=== PATIENT | female | born 1970 | race Caucasian/White ===

== ENCOUNTER 2016-11-14 18:40 | Emergency (ER) | payer BC ==
[2016-11-14 18:47] VITALS: BP 139/89; PULSE 82; TEMP 98.1; BMI 36.0
--- NOTE | 2016-11-14 19:20 | PDOC ---
History of Present Illness - General History Source: Patient Exam Limitations: No Limitations - History of Present Illness Initial Comments: 11/14/16 19:48 The patient is a 46 year old female, with a significant past medical history of hypercholesterolemia, who presents to the emergency department complaining of left knee pain for approximately 3 weeks. She describes her pain as sharp in nature. She reports associated internal burning at the site of the pain. The patient reports the pain and burning is worse when driving. She reports she has occasional difficulty ambulating secondary to pain and intermittent stiffness with walking.. The patient reports she had a pain similar to this approximately 1 year ago, during which she had an X-Ray, which revealed a sprain. Patient reports following up with physical therapy, with mild relief of symptoms for several months. Recently she has noted increased swelling to the left knee. The patient reports she has been taking motrin for the pain. She reports she occasionally feels mild relief when taking 2 motrin. She denies any history of trauma to the left knee, varicose veins, DVTs or PEs. She denies any recent travel. Allergies: None reported Past Surgical History: None reported Social History: Current everyday smoker. No ETOH or drug use. PCP: Dr. Chu <Wong Castillo - Last Filed: 11/14/16 19:55> <Ketty Lennon - Last Filed: 11/15/16 00:11> - General Chief Complaint: Pain Stated Complaint: LEFT KNEE PAIN Time Seen by Provider: 11/14/16 19:19 Past History <Wong Castillo - Last Filed: 11/14/16 19:55> - Past Medical History Diabetes: Yes Hypercholesterolemia: Yes - Immunization History Immunization Up to Date: Yes - Psycho/Social/Smoking Cessation Hx Anxiety: Yes Suicidal Ideation: No Smoking Status: No Smoking History: Current some day smoker Have you smoked in the past 12 months: Yes Number of Cigarettes Smoked Daily: 1 Information on smoking cessation initiated: Yes 'Breaking Loose' booklet given: 11/14/16 Hx Alcohol Use: No Drug/Substance Use Hx: No Substance Use Type: None <Ketty Lennon - Last Filed: 11/15/16 00:11> - Past Medical History Allergies/Adverse Reactions: Allergies Allergy/AdvReac Type Severity Reaction Status Date / Time No Known Allergies Allergy Verified 11/14/16 18:41 Home Medications: Ambulatory Orders Fenofibrate 145 mg PO DAILY 09/27/15 Diclofenac Sodium 75 mg PO BID PRN #20 tablet. 11/14/16 Review of Systems - Review of Systems Able to Perform ROS?: Yes Comments:: 11/14/16 19:48 CONSTITUTIONAL: Absent: fever, no chills, no fatigue EYES: Absent: visual changes ENT: Absent: ear pain, no sore throat CARDIOVASCULAR: Absent: chest pain, no palpitations RESPIRATORY: Absent: cough, no SOB GI: Absent: abdominal pain, no nausea, no vomiting, no constipation, no diarrhea GENITOURINARY: Absent: dysuria, no frequency, no hematuria MUSCULOSKELETAL: Present: +left knee pain, +internal burning at left knee, +left knee swelling, + stiffness with walking Absent: back pain, no arthralgia, no myalgia SKIN: Absent: rash NEURO: Absent: headache <Wong Castillo - Last Filed: 11/14/16 19:55> *Physical Exam - Vital Signs Last Vital Signs Temp Pulse Resp BP Pulse Ox 98.1 F 82 20 139/89 99 11/14/16 18:40 11/14/16 18:40 11/14/16 18:40 11/14/16 18:40 11/14/16 18:40 - Physical Exam Comments: 11/14/16 19:48 GENERAL: The patient is awake, alert, and fully oriented, in no acute distress. HEAD: Normal with no signs of trauma. EYES: Pupils equal, round and reactive to light, extraocular movements intact, sclera anicteric, conjunctiva clear. EXTREMITIES: Left knee was nonedematous without deformity or ecchymosis. Mild tenderness to palpation superior to the left patella. Mild pain medially with valgus stressing, but no ligamentous instability. Left lower leg 4x4 cm mildly edematous, faintly ecchymotic, and mildly tender from the medial proximal portion of the left lower leg, extending posteriorly. No palpable cords. No distinct varicosity seen. Otherwise normal with palpable pedal pulses. Good capillary refill, no edema. Warm and dry.Normal range of motion. NEUROLOGICAL: Normal speech, normal gait. PSYCH: Normal mood, normal affect. SKIN: Warm, Dry, normal turgor, no rashes or lesions noted. <Castillo,Giomilsy - Last Filed: 11/14/16 19:55> - Vital Signs Last Vital Signs Temp Pulse Resp BP Pulse Ox 98.1 F 82 20 139/89 99 11/14/16 18:40 11/14/16 18:40 11/14/16 18:40 11/14/16 18:40 11/14/16 18:40 <Ketty Lennon - Last Filed: 11/15/16 00:11> Progress Note - Progress Note Progress Note: Documentation has been prepared under my direction and personally reviewed by me in its entirety. I attest that this documented accurately reflects all work, treatment, procedures and medical decision making performed by me. <Ketty Lennon - Last Filed: 11/15/16 00:11> Medical Decision Making - Medical Decision Making As noted above, this 46-year-old woman presents with a few week history of left knee discomfort and a more recent history of edema/pain/bruising just distal and medial to her left knee. No history of trauma noted. Patient had similar knee episodes approximately one year ago which was diagnosed as a sprain. Symptoms improved after physical therapy but have now recurred despite no trauma /overuse. She has no history of varicose veins/DVT or other thromboembolic issues. Exam as noted Doppler duplex study of the left lower extremity was performed because of the tenderness and edema of the proximal lower leg; no DVTs seen on study. Left knee x-ray show no evidence of fracture/dislocation or significant DJD Results discussed with the patient. Localized edema and tenderness likely secondary to contusion. The left knee symptoms are likely soft tissue base; she has been given Drs. Nettles/Edward referral information for follow-up. Meanwhile, the patient will have Toradol 60 mg IM for anti-inflammatory/ analgesia effects Diclofenac 75 mg twice a day (#20) prescription, to be used as needed for knee pain and to be taken with food, sent to pharmacy <Ketty Lennon - Last Filed: 11/15/16 00:11> *DC/Admit/Observation/Transfer - Attestations Scribe Attestion: 11/14/16 19:48 Documentation prepared by Wong Castillo, acting as emergency medical service coordinator for Ketty Lennon MD. <Wong Castillo - Last Filed: 11/14/16 19:55> <Ketty Lennon - Last Filed: 11/15/16 00:11> Diagnosis at time of Disposition: Knee pain, left Qualifiers: Chronicity: chronic Qualified Code(s): M25.562 - Pain in left knee Contusion of left lower leg Qualifiers: Encounter type: initial encounter Qualified Code(s): S80.12XA - Contusion of left lower leg, initial encounter - Discharge Dispostion Disposition: HOME Condition at time of disposition: Good - Prescriptions Prescriptions: Diclofenac Sodium 75 mg PO BID PRN #20 tablet.dr ESPINOZA Reason: Pain - Referrals Referrals: Goran Nettles MD [Staff Physician] - Call tomorrow - Patient Instructions Printed Discharge Instructions: DI for Knee Pain Additional Instructions: cool compresses to swollen area elevate left leg as much as possible diclofenac 75mg twice a day as needed for pain(take with food) followup with Dr Nettles/Dr Leon(orthopedists) within 1 week
[2016-11-14] MEDS ORDERED: KETOROLAC TROMETHAMINE 60 MG/2 ML VIAL IM ONE (21:41)
[2016-11-14] MEDS ORDERED: KETOROLAC TROMETHAMINE 60 MG/2 ML VIAL ONE (21:41)
== END 2016-11-14 21:47 | disposition home or self-care (01) ==
LOC: FER 18:40
PROC: 3E0233Z Introduction of Anti-inflammatory into Muscle, Percutaneous Approach (ICD-10-PCS; principal; 2016-11-14)
DX: M25.562 Pain in left knee (principal); S80.12XA Contusion of left lower leg, initial encounter
CPT/HCPCS: 73562-TC-LT; 93971-TC; 99282-25

== ENCOUNTER 2017-06-29 14:22 | Emergency (ER) | payer BC ==
--- NOTE | 2017-06-29 14:25 | PDOC ---
History of Present Illness - General History Source: Patient Exam Limitations: No Limitations - History of Present Illness Initial Comments: 06/29/17 14:41 The patient is a 46 year old female, with a significant past medical history of hyperlipidemia, who presents to the emergency department with cold-like symptoms for approximately 5 days. The patient reports she first developed a dry cough 5 days ago. Patient reports associated right sided chest tightness and rib pain secondary to coughing. She states she has been using a Symbicort and Albuterol inhaler for her symptoms with mild relief. Since then, she reports a runny nose, sinus congestion, mouth blisters, subjective fever, sore throat, and laryngitis. Patient states her symptoms are similar to when she has had bronchitis in the past. She denies any body aches, chills, headache, dizziness, or ear pain. She denies any shortness of breath, diaphoresis, or palpitations. She denies any abdominal pain, nausea, or vomiting. She denies any recent travel or sick contacts. Allergies: NKDA Past Surgical History: None reported. Social History: Occasional smoker(last cigarette about 1 week ago). No ETOH or recreational drug use. <Wong Castillo - Last Filed: 06/29/17 14:41> <Khadar Keyes - Last Filed: 06/29/17 15:19> - General Chief Complaint: Cold Symptoms Stated Complaint: FLU Time Seen by Provider: 06/29/17 14:25 Past History <Wong Castillo - Last Filed: 06/29/17 14:41> - Past Medical History Diabetes: Yes Hypercholesterolemia: Yes - Immunization History Immunization Up to Date: Yes - Suicide/Smoking/Psychosocial Hx Smoking Status: No Smoking History: Current some day smoker Have you smoked in the past 12 months: Yes Number of Cigarettes Smoked Daily: 1 'Breaking Loose' booklet given: 11/14/16 Hx Alcohol Use: No Drug/Substance Use Hx: No Substance Use Type: None <Khadar Keyes - Last Filed: 06/29/17 15:19> - Past Medical History Allergies/Adverse Reactions: Allergies Allergy/AdvReac Type Severity Reaction Status Date / Time No Known Allergies Allergy Verified 06/29/17 14:23 Home Medications: Ambulatory Orders Acyclovir 5% Ointment [Zovirax 5% Ointment -] 1 applic TP 5XD #1 tube 06/29/17 Guaifenesin AC [Robitussin-AC] 1 - 2 tsp PO Q4HWA PRN #120 ml MDD 8 06/29/17 Oseltamivir Phosphate [Tamiflu] 75 mg PO BID #10 capsule 06/29/17 Review of Systems - Review of Systems Able to Perform ROS?: Yes Comments:: 06/29/17 14:42 CONSTITUTIONAL: Present: fever Absent: no chills, no fatigue EYES: Absent: visual changes ENT: Present: Sore throat, laryngitis, runny nose, sinus congestion, mouth blisters Absent: ear pain CARDIOVASCULAR: Present: Right sided chest tightness Absent: chest pain, no palpitations RESPIRATORY: Present: cough Absent: no SOB GI: Absent: abdominal pain, no nausea, no vomiting, no constipation, no diarrhea GENITOURINARY: Absent: dysuria, no frequency, no hematuria MUSKULOSKELETAL: Present: right sided rib pain Absent: back pain, no myalgia SKIN: Absent: rash NEURO: Absent: headache <Castillo,Giomilsy - Last Filed: 06/29/17 14:41> *Physical Exam - Vital Signs Last Vital Signs Temp Pulse Resp BP Pulse Ox 98.2 F 96 H 16 129/90 96 06/29/17 14:22 06/29/17 14:22 06/29/17 14:22 06/29/17 14:22 06/29/17 14:22 - Physical Exam Comments: 06/29/17 14:45 GENERAL: Well-appearing, well-nourished. No apparent distress. Moderately obese. Sustained nonproductive cough. HEENT: Mild pharyngeal erythema without exudates, masses, or swelling. Scattered vesicles over the lips bilaterally and the mucous membranes of the oropharynx. Normocephalic, atraumatic. PERRL, EOM intact. NECK: Supple. No lyphadenopathy CARDIOVASCULAR: Normal S1, S2. Regular rate and rhythm. No murmurs, rubs, or gallops PULMONARY: Decreased breath sounds bilaterally. No wheezes, rales or ronchi. No tachypnea or dyspnea. ABDOMEN: Soft, non-distended, non-tender. EXTREMITIES: Normal ROM in all four extremities. No gross deformities. SKIN: Warm, dry. No rash. Good turgor. Moist mucous membranes. NEUROLOGICAL: No focal neurological deficits. <Wong Castillo - Last Filed: 06/29/17 14:41> Medical Decision Making - Medical Decision Making 06/29/17 15:18 Patient with minimal risk factors and a flu symptoms. Prescribed albuterol and steroid inhalers by her primary physician. Nonproductive cough. No fever or shortness of breath Improved with nebulizer treatment. Breath sounds full, bilateral, without wheezes rales or rhonchi. Respiratory rate 16 and unlabored. O2 saturation 98%. Most likely influenza, symptomatic and Tamiflu treatment, rest and fluids, close follow-up if no improvement or if symptoms worsen. Fully ambulatory and in no distress respiratory or otherwise upon discharge with her to follow-up as recommended <Khadar Keyes - Last Filed: 06/29/17 15:19> *DC/Admit/Observation/Transfer - Attestations Scribe Attestion: 06/29/17 14:42 Documentation prepared by Wong Castillo, acting as medical administrative technician for Khadar Bedolla MD. <Wong Castillo - Last Filed: 06/29/17 14:41> - Discharge Dispostion Admit: No <Khadar Keyes - Last Filed: 06/29/17 15:19> Diagnosis at time of Disposition: Viral upper respiratory tract infection with cough - Discharge Dispostion Disposition: HOME Condition at time of disposition: Improved - Prescriptions Prescriptions: Acyclovir 5% Ointment [Zovirax 5% Ointment -] 1 applic TP 5XD #1 tube Guaifenesin AC [Robitussin-AC] 1 - 2 tsp PO Q4HWA PRN #120 ml MDD 8 PRN Reason: Cough Oseltamivir Phosphate [Tamiflu] 75 mg PO BID #10 capsule - Referrals Referrals: Severiano Chu MD [Primary Care Provider] - 2 Days - Patient Instructions Printed Discharge Instructions: DI for Viral Upper Respiratory Infection -- Adult - Post Discharge Activity Forms/Work/School Notes: Back to Work
[2017-06-29 14:34] VITALS: BP 129/90; PULSE 96; TEMP 98.2; BMI 36.8
[2017-06-29] MEDS ORDERED: ALBUTEROL SO4 2.5/IPRATROPIUM 0.5 INH SOL 3 ML VIAL.NEB. NEB ONE ×2 (14:35→14:37)
[2017-06-29] MEDS ORDERED: guaiFENesin/CODEINE 10 ML UNIT-DOSE CUPS PO ONE (14:36)
[2017-06-29] MEDS ORDERED: guaiFENesin/CODEINE 10 ML UNIT-DOSE CUPS ONE (14:37)
== END 2017-06-29 15:12 | disposition home or self-care (01) ==
LOC: FER 14:22
PROC: 3E0F7GC Introduction of Other Therapeutic Substance into Respiratory Tract, Via Natural or Artificial Opening (ICD-10-PCS; principal; 2017-06-29)
DX: J06.9 Acute upper respiratory infection, unspecified (principal); B97.89 Other viral agents as the cause of diseases classified elsewhere; R05 Cough; F17.210 Nicotine dependence, cigarettes, uncomplicated
CPT/HCPCS: 99281-25

== ENCOUNTER 2018-09-23 02:54 | Emergency (ER) | payer BC ==
--- NOTE | 2018-09-23 03:01 | PDOC ---
History of Present Illness - General Chief Complaint: Pain, Acute Stated Complaint: RIGHT EAR CLOGGED Time Seen by Provider: 09/23/18 03:01 - History of Present Illness Initial Comments: The patient is a 48 year old female, with a significant PMH of HLD who presents to the emergency department with 1 day hx of progressive right ear pain. The patient states that she has had a few day hx of nasal congestion, likely secondary to seasonal allergies. During the day she noted increasing sensation of fullnes in the right ear, with pain developing in the evening. No hx of trauma to the ear. She states that she has had "swimmers ear" in the past, that was treated with drops. No fever The patient denies chest pain, shortness of breath, headache and dizziness. Allergies: NKA Past History - Past Medical History Allergies/Adverse Reactions: Allergies Allergy/AdvReac Type Severity Reaction Status Date / Time No Known Allergies Allergy Verified 09/23/18 02:56 Home Medications: Ambulatory Orders Albuterol Sulfate Inhaler - [Ventolin Hfa Inhaler -] 1 - 2 inh PO QID 09/23/18 Montelukast Sodium [Singulair] 10 mg PO DAILY 09/23/18 Neomycin/Polymyxn/Hc [Cortisporin Otic Suspenstion -] 4 drop AD Q4HWA #1 bottle 09/23/18 COPD: No Diabetes: Yes Hypercholesterolemia: Yes - Immunization History Immunization Up to Date: Yes - Suicide/Smoking/Psychosocial Hx Smoking Status: No Smoking History: Current some day smoker Have you smoked in the past 12 months: Yes Number of Cigarettes Smoked Daily: 1 'Breaking Loose' booklet given: 11/14/16 Hx Alcohol Use: No Drug/Substance Use Hx: No Substance Use Type: None Review of Systems - Review of Systems Able to Perform ROS?: Yes Comments:: GENERAL/CONSTITUTIONAL: No fever or chills. No weakness. HEAD, EYES, EARS, NOSE AND THROAT: No change in vision. No sore throat. CARDIOVASCULAR: No chest pain or shortness of breath. RESPIRATORY: No cough, wheezing, or hemoptysis. GASTROINTESTINAL: No nausea, vomiting, diarrhea or constipation. GENITOURINARY: No dysuria, frequency, or change in urination. MUSCULOSKELETAL: No joint or muscle swelling or pain. No neck or back pain. SKIN: No rash NEUROLOGIC: No headache, vertigo, loss of consciousness, or change in strength/ sensation. ENDOCRINE: No increased thirst. No abnormal weight change. HEMATOLOGIC/LYMPHATIC: No anemia, easy bleeding, or history of blood clots. ALLERGIC/IMMUNOLOGIC: No hives or skin allergy. *Physical Exam - Physical Exam Comments: GENERAL: Awake, alert, and fully oriented, in no acute distress HEAD: No signs of trauma EYES: PERRLA, EOMI, sclera anicteric, conjunctiva clear ENT: Auricles normal inspection,Right canal edematous,erythematous/ TM only partially visualized; Left ear normal hearing grossly normal, nares patent, oropharynx clear without exudates. Moist mucosa NECK: Normal ROM, supple, no lymphadenopathy, JVD, or masses Medical Decision Making - Medical Decision Making Clinical presentation consistent with acute otitis externa of right ear. Prescription for cortisporin otic suspension sent to pharmacy: pt should use drops every 4 hours in R ear while awake for 1 week She already has an ENT doctor: she should call office tomorrow to arrange followup within a few days *DC/Admit/Observation/Transfer Diagnosis at time of Disposition: Acute otitis externa of right ear Qualifiers: Otitis externa type: unspecified type Qualified Code(s): H60.501 - Unspecified acute noninfective otitis externa, right ear - Discharge Dispostion Disposition: HOME Condition at time of disposition: Stable - Prescriptions Prescriptions: Neomycin/Polymyxn/Hc [Cortisporin Otic Suspenstion -] 4 drop AD Q4HWA #1 bottle - Referrals - Patient Instructions Printed Discharge Instructions: Otitis Externa Additional Instructions: cortisporin otic suspension 4 drops in right ear every 4 hours while awake for 1 week keep ear as dry as possible Motrin/Aleve/Tylenol as needed for pain consider antihistamine/decongestant combination during the day as discussed call your ENT doctor in AM to arrange followup within 3-4 days return to ER if you have severe pain/high fever - Post Discharge Activity
[2018-09-23 03:04] VITALS: BP 121/84; PULSE 85; TEMP 98; BMI 36.8
== END 2018-09-23 03:24 | disposition home or self-care (01) ==
LOC: FER 02:54
DX: H60.501 Unspecified acute noninfective otitis externa, right ear (principal); E78.5 Hyperlipidemia, unspecified; F17.210 Nicotine dependence, cigarettes, uncomplicated
CPT/HCPCS: 99281-25

== ENCOUNTER 2019-03-23 22:34 | Emergency (ER) | payer BC ==
[2019-03-23 22:48] VITALS: BP 144/84; PULSE 107; TEMP 98; BMI 35.2
--- NOTE | 2019-03-24 00:28 | PDOC ---
Documentation entered by Jasbir Mcgill SCRIBE, acting as scribe for Ketty Lennon MD. Ketty Lennon MD: This documentation has been prepared by the Artem parker Aiswarya, SCRIBE, under my direction and personally reviewed by me in its entirety. I confirm that the documentation accurately reflects all work, treatment, procedures, and medical decision making performed by me. History of Present Illness - General Chief Complaint: Pain, Acute Stated Complaint: LEFT EAR PAIN TODAY - History of Present Illness Initial Comments: This 48-year-old woman with a history of DM/HLD and intermittent ear infections presents with a 1 day history of increasing left ear pain. Patient also has had facial discomfort/congestion consistent with sinusitis secondary to seasonal allergies. Patient states that she has been taking albuterol and Singulair as prescribed for her seasonal allergies. She has mild throat pain with swallowing but no fever/chills, cough, shortness of breath or wheezing. Patient states that her otitis media infections are frequently treated with Augmentin which she tolerates well. No known allergies Medications as noted below Past History - Past Medical History Allergies/Adverse Reactions: Allergies Allergy/AdvReac Type Severity Reaction Status Date / Time No Known Allergies Allergy Verified 03/23/19 22:35 Home Medications: Ambulatory Orders Albuterol Sulfate Inhaler - [Ventolin Hfa Inhaler -] 1 - 2 inh PO QID 09/23/18 Montelukast Sodium [Singulair] 10 mg PO DAILY 09/23/18 Amox-Tr/K Cl [Augmentin - 875Mg Tablet] 1 tab PO BID #14 tablet 03/23/19 Neomycin/Polymyxn/Hc [Cortisporin Otic Suspenstion -] 5 drop Q4HWA #1 bottle 03/23/19 COPD: No Diabetes: Yes Hypercholesterolemia: Yes - Immunization History Immunization Up to Date: Yes - Psycho Social/Smoking Cessation Hx Smoking Status: No Smoking History: Current some day smoker Have you smoked in the past 12 months: Yes Number of Cigarettes Smoked Daily: 1 If you are a former smoker, when did you quit?: 2 'Breaking Loose' booklet given: 11/14/16 Hx Alcohol Use: No Drug/Substance Use Hx: No Substance Use Type: None Review of Systems - Review of Systems Able to Perform ROS?: Yes Comments:: 12 point review of systems is negative except for what is noted in the history of present illness *Physical Exam - Vital Signs Last Vital Signs Temp Pulse Resp BP Pulse Ox 98 F 107 H 16 144/84 97 03/23/19 22:38 03/23/19 22:38 03/23/19 22:38 03/23/19 22:38 03/23/19 22:38 - Physical Exam Comments: GENERAL: Adult female, alert and oriented x3, no acute distress HEAD: Normal with no signs of trauma. EYES: PERRLA, EOMI, sclera anicteric, conjunctiva clear. ENT: Mild tenderness to palpation bilateral frontal and maxillary sinus area; left earmild edema/erythema canal; tympanic membrane dull and bulging right earnormal canal and TM Pharynx clear without erythema/masses noted NECK: Normal range of motion, supple without lymphadenopathy, JVD, or masses. LUNGS: Breath sounds equal, clear to auscultation bilaterally. No wheezes, and no crackles. HEART:Regular rate and rhythm, normal S1 and S2 without murmur, rub or gallop. NEUROLOGICAL: Cranial nerves II through XII grossly intact. Normal speech. No focal neurological deficits. Medical Decision Making - Medical Decision Making As noted above, this 48-year-old woman with a history of recurrent ear infections presents with 1 day history of progressive pain in her left ear. She has had facial congestion/discomfort and mild sore throat which she typically gets at this time of the year secondary to seasonal allergies. No fever/chills or other evidence of systemic infection. Exam as noted notable for evidence of both acute otitis externa and acute otitis media. Patient states that she tolerates Augmentin well and it is usually very effective for her otitis media episodes. Prescription for Augmentin 825/125 twice a day to be taken with meals for 1 week sent to her pharmacy. Also, prescription sent for Cortisporin otic suspension to be used every 4 hours while awake until seen by her ear nose and throat doctor Patient will be discharged with follow-up with her ENT doctor within the next 48 hours. She should return to the ER if she has severe pain, develops fever/ chills prior to seeing her coding quality analyst. Discharge - Discharge Information Problems reviewed: Yes Clinical Impression/Diagnosis: Otitis media of left ear Qualifiers: Otitis media type: unspecified Qualified Code(s): H66.92 - Otitis media, unspecified, left ear Acute otitis externa of left ear Qualifiers: Otitis externa type: unspecified type Qualified Code(s): H60.502 - Unspecified acute noninfective otitis externa, left ear Condition: Stable Disposition: HOME - Additional Discharge Information Prescriptions: Amox-Tr/K Cl [Augmentin - 875Mg Tablet] 1 tab PO BID #14 tablet Neomycin/Polymyxn/Hc [Cortisporin Otic Suspenstion -] 5 drop Q4HWA #1 bottle - Follow up/Referral - Patient Discharge Instructions Patient Printed Discharge Instructions: Middle Ear Infection, DI for Otitis Externa Additional Instructions: Augmentin 875/125 twice a day; take with meal Cortisporin otic suspension 5 drops in left ear every 4 hours while awake Continue other medications as prescribed Follow-up with your ENT doctor within the next 2 to 3 days Return to ER if you have persistent severe pain or fever develops - Post Discharge Activity
== END 2019-03-23 23:16 | disposition home or self-care (01) ==
LOC: FER 22:34
DX: H66.92 Otitis media, unspecified, left ear (principal); H60.502 Unspecified acute noninfective otitis externa, left ear; E11.9 Type 2 diabetes mellitus without complications; E78.5 Hyperlipidemia, unspecified; F17.210 Nicotine dependence, cigarettes, uncomplicated
CPT/HCPCS: 99281-25